=== PATIENT | male | born 1950 | race Caucasian/White ===

== ENCOUNTER 2024-05-23 03:05 | Inpatient (IN) | payer MEDICARE, OTHER ==
[~2024-05-23] VITALS: Ht 185.4 cm; Wt 94.8 kg
[2024-05-23 03:15] VITALS: O2SAT 98
[2024-05-23] MEDS: SODIUM CHLORIDE 0.9% 500 ML IV ONE ×2 (03:39→05:15)
[2024-05-23 03:48] LABS: BASOPHILS % 1.1 % (0.0-2.0); DIFFERENTIAL COMMENT 0; EOSINOPHILS % 1.4 % (0.0-5.0); HEMOGLOBIN. 7.9 g/dL (14.0-18.0); LYMPHOCYTES % 21.5 % (20.0-50.0); MEAN CORPUSCULAR HEMOGLOBIN 32.3 pg (28.0-32.0); MEAN CORPUSCULAR HGB CONC 31.4 g/dL (31.0-37.0); MEAN CORPUSCULAR VOLUME 102.8 fL (80.0-94.0); MEAN PLATELET VOLUME 8.5 fl (7.4-10.4); MONOCYTES % 8.1 % (2.0-8.0); NEUTROPHILS % 67.9 % (40.0-76.0); PLATELET 302 x1000/uL (130-400); RED BLOOD CELL COUNT 2.43 mill/uL (4.7-6.1); RED CELL DISTRIBUTION WIDTH 15.6 % (11.6-14.6); WHITE BLOOD COUNT 8.6 x1000/uL (4.5-11.0)
[2024-05-23 04:02] LABS: CHLORIDE 115 mEq/L (98-107); POTASSIUM 4.6 mEq/L (3.5-5.1); SODIUM 141 mEq/L (136-145)
[2024-05-23 04:03] LABS: CALCIUM 7.6 mg/dL (8.7-10.4); CARBON DIOXIDE 18 mEq/L (21-32)
[2024-05-23 04:08] LABS: CREATININE 1.6 mg/dL (0.6-1.3); GLUCOSE 161 mg/dL (70-105); UREA NITROGEN BLOOD 12 mg/dL (9-23)
[2024-05-23 04:09] LABS: TROPONIN I HIGH SENSITIVITY 5 ng/L (3.0-53)
[2024-05-23 04:25] LABS: ETHANOL BLOOD < 10 mg/dL (<10)
[2024-05-23 04:29] LABS: INR 1.2; PARTIAL THROMBOPLASTIN TIME 26.8 sec (23.4-31.0); PROTHROMBIN TIME 13.1 sec (9.6-11.0)
[2024-05-23 04:41] LABS: ALANINE AMINOTRANSFERASE 24 IU/L (10-49); ALBUMIN 2.8 g/dL (3.2-4.8); ASPARTATE AMINOTRANSFERASE 21 IU/L (<34); BILIRUBIN DIRECT 0.4 mg/dL (<=3.0); BILIRUBIN TOTAL 0.6 mg/dL (0.1-1.0)
[2024-05-23] MEDS: PANTOPRAZOLE SODIUM 40 MG/VIAL IV NR (05:28)
[2024-05-23] MEDS ORDERED: ONDANSETRON HCL 4MG/2ML INJ IV PRN (09:00)
[2024-05-23] MEDS ORDERED: IPRATROPIUM/ALBUTEROL 0.5-3(2.5)MG/3ML NEB HHN PRN (09:00)
[2024-05-23 10:58] LABS: IRON 55 ug/dL (65-175)
[2024-05-23 11:01] LABS: PHOSPHORUS 4.5 mg/dL (2.5-4.9); TOTAL IRON BINDING CAPACITY 250 ug/dl (250-425)
[2024-05-23 12:00] VITALS: BP 110/71; PULSE 86; RESP 20; TEMP 36.33624; TEMP 36.3624; O2SAT 98
[2024-05-23 13:04] LABS: *AMPHETAMINES SCREEN URINE NEGATIVE (NEGATIVE); *BARBITURATES SCREEN URINE NEGATIVE (NEGATIVE); *BENZODIAZEPINES SCREEN URINE NEGATIVE (NEGATIVE); *COCAINE SCREEN URINE NEGATIVE (NEGATIVE); METHADONE URINE SCREEN NEGATIVE (NEGATIVE); OPIATES URINE SCREEN NEGATIVE (NEGATIVE)
[2024-05-23 13:05] LABS: ECSTASY MDMA SCREEN URINE NEGATIVE (NEGATIVE); PHENCYCLIDINE URINE SCREEN NEGATIVE (NEGATIVE)
[2024-05-23 13:22] LABS: FOLIC ACID (FOLATE) SERUM > 20.00 ng/mL (>5.38)
[2024-05-23 13:23] LABS: FERRITIN 278 ng/mL (22-322); VITAMIN B12 SERUM 563 pg/mL (211-911)
[2024-05-23 16:00] VITALS: BP 91/52; PULSE 91; RESP 18; TEMP 36.55848; O2SAT 98
[2024-05-23 16:05] LABS: CANNABINOID URINE SCREEN NEGATIVE (NEGATIVE)
[2024-05-23 20:00] VITALS: BP 94/65; PULSE 71; RESP 18; TEMP 36.83628; O2SAT 100
[2024-05-23] MEDS: HYDROXYZINE 25MG TABLET PO PRN (22:10)
[2024-05-23] MEDS: PANTOPRAZOLE SODIUM 40 MG/VIAL IV SCH (22:14)
[2024-05-24] VITALS: BP 105/61; PULSE 79; RESP 18; TEMP 36.33624; O2SAT 96
[2024-05-24 04:00] VITALS: BP 101/74; PULSE 84; RESP 18; TEMP 36.28068; O2SAT 99
[2024-05-24 06:52] LABS: CARBON DIOXIDE 21 mEq/L (21-32); CHLORIDE 113 mEq/L (98-107); POTASSIUM 4.1 mEq/L (3.5-5.1); SODIUM 141 mEq/L (136-145)
[2024-05-24 06:53] LABS: CALCIUM 8.1 mg/dL (8.7-10.4)
[2024-05-24 06:55] LABS: THYROID STIMULATING HORMONE 3.27 uIU/mL (0.55-4.78)
[2024-05-24 06:58] LABS: CREATININE 1.5 mg/dL (0.6-1.3); GLUCOSE 86 mg/dL (70-105); TRIGLYCERIDE 95 mg/dL (0-150); UREA NITROGEN BLOOD 10 mg/dL (9-23)
[2024-05-24 06:59] LABS: LDL CHOLESTEROL 28 mg/dL (5-100)
[2024-05-24 07:00] LABS: CHOLESTEROL 65 mg/dL (<200); HDL CHOLESTEROL < 20 mg/dL (>55)
[2024-05-24 07:04] LABS: BASOPHILS % 1.4 % (0.0-2.0); EOSINOPHILS % 2.2 % (0.0-5.0); HEMATOCRIT. 21.7 % (42.0-52.0); HEMOGLOBIN. 7.1 g/dL (14.0-18.0); LYMPHOCYTES % 25.1 % (20.0-50.0); MEAN CORPUSCULAR HGB CONC 32.8 g/dL (31.0-37.0); MEAN CORPUSCULAR VOLUME 97.7 fL (80.0-94.0); MEAN PLATELET VOLUME 8.8 fl (7.4-10.4); MONOCYTES % 7.6 % (2.0-8.0); NEUTROPHILS % 63.7 % (40.0-76.0); PLATELET 206 x1000/uL (130-400); RED BLOOD CELL COUNT 2.22 mill/uL (4.7-6.1); RED CELL DISTRIBUTION WIDTH 16.7 % (11.6-14.6); WHITE BLOOD COUNT 4.8 x1000/uL (4.5-11.0)
[2024-05-24 08:00] VITALS: BP 80/50; PULSE 84; RESP 20; TEMP 35.61396; O2SAT 92
[2024-05-24] MEDS: LACTATED RINGERS 1,000 ML IV SCH (08:00)
[2024-05-24 12:00] VITALS: BP 290/62; PULSE 82; RESP 20; TEMP 36.55848; O2SAT 97
[2024-05-24] MEDS: MAGNESIUM 2 G PREMIX 50 ML IV NR (13:25)
[2024-05-24 15:26] LABS: HEMOGLOBIN 7.6 g/dL (14.0-18.0)
[2024-05-24] MEDS ORDERED: POLYVINYL ALCOHOL OPHTH DROPS 15ML BOTHEYE PRN (15:30)
[2024-05-24 16:00] VITALS: BP 107/71; PULSE 82; RESP 18; TEMP 36.9474; O2SAT 99
[2024-05-24] MEDS: FERROUS SULFATE 325MG TABLET PO SCH (17:41)
[2024-05-24] MEDS: [UNRECOGNIZED DRUG - OTHER] PO SCH (17:41)
[2024-05-24] MEDS: BISACODYL 10MG SUPP PR NR (17:45)
[2024-05-24 20:00] VITALS: BP 113/66; PULSE 80; RESP 18; TEMP 36.22512; O2SAT 97
[2024-05-24] MEDS: SENNOSIDES/DOCUSATE SOD 8.6/50MG TABLET PO SCH (23:02)
[2024-05-24] MEDS: ATORVASTATIN CALCIUM 40MG TABLET PO SCH (23:02)
[2024-05-25] VITALS (7 sets, daily range): BP systolic 81–128; BP diastolic 47–85; PULSE 60–87; RESP 18; TEMP 35.8362–37.00296; O2SAT 87–98
[2024-05-25] MEDS: LACTATED RINGERS 1,000 ML IV SCH (02:39)
[2024-05-25] MEDS: CYANOCOBALAMIN 1000MCG TABLET PO SCH (06:57)
[2024-05-25] MEDS: LEVOTHYROXINE SODIUM 112MCG TABLET PO SCH (06:57)
[2024-05-25 09:38] LABS: BASOPHILS % 1.2 % (0.0-2.0); EOSINOPHILS % 2.6 % (0.0-5.0); HEMATOCRIT. 22.7 % (42.0-52.0); HEMOGLOBIN. 7.5 g/dL (14.0-18.0); LYMPHOCYTES % 21.4 % (20.0-50.0); MEAN CORPUSCULAR HEMOGLOBIN 32.3 pg (28.0-32.0); MEAN CORPUSCULAR HGB CONC 32.9 g/dL (31.0-37.0); MEAN CORPUSCULAR VOLUME 98.2 fL (80.0-94.0); MEAN PLATELET VOLUME 8.6 fl (7.4-10.4); MONOCYTES % 5.8 % (2.0-8.0); PLATELET 222 x1000/uL (130-400); RED BLOOD CELL COUNT 2.31 mill/uL (4.7-6.1); RED CELL DISTRIBUTION WIDTH 16.4 % (11.6-14.6); WHITE BLOOD COUNT 5.1 x1000/uL (4.5-11.0)
[2024-05-25 09:55] LABS: POTASSIUM 4.3 mEq/L (3.5-5.1)
[2024-05-25] MEDS: SPIRONOLACTONE 25MG TABLET PO SCH (09:55)
[2024-05-25] MEDS: ASCORBIC ACID 500 MG TABLET PO SCH (09:55)
[2024-05-25] MEDS: CHOLECALCIFEROL (D3) 1000 UNIT TABLET PO SCH (09:55)
[2024-05-25] MEDS: POLYETHYLENE GLYCOL 3350 (17GM) 1 DOSE PACK PO SCH (09:55)
[2024-05-25 09:56] LABS: CALCIUM 8.1 mg/dL (8.7-10.4)
[2024-05-25 09:58] LABS: CREATININE 1.5 mg/dL (0.6-1.3)
[2024-05-25] MEDS: LACTULOSE 20G/30ML UDC PO NR (13:23)
[2024-05-26] VITALS (13 sets, daily range): BP systolic 80–111; BP diastolic 47–94; PULSE 65–81; RESP 15–24; TEMP 35.8362–36.72516; O2SAT 95–98
[2024-05-26 06:53] LABS: BASOPHILS % 0.9 % (0.0-2.0); EOSINOPHILS % 2.8 % (0.0-5.0); HEMATOCRIT. 22.7 % (42.0-52.0); HEMOGLOBIN. 7.4 g/dL (14.0-18.0); LYMPHOCYTES % 24.3 % (20.0-50.0); MEAN CORPUSCULAR HEMOGLOBIN 31.5 pg (28.0-32.0); MEAN CORPUSCULAR HGB CONC 32.4 g/dL (31.0-37.0); MEAN CORPUSCULAR VOLUME 97.2 fL (80.0-94.0); MEAN PLATELET VOLUME 8.7 fl (7.4-10.4); MONOCYTES % 7.2 % (2.0-8.0); NEUTROPHILS % 64.8 % (40.0-76.0); PLATELET 201 x1000/uL (130-400); RED BLOOD CELL COUNT 2.34 mill/uL (4.7-6.1); RED CELL DISTRIBUTION WIDTH 16.4 % (11.6-14.6); WHITE BLOOD COUNT 4.9 x1000/uL (4.5-11.0)
[2024-05-26 07:21] LABS: CALCIUM 8.1 mg/dL (8.7-10.4); CARBON DIOXIDE 23 mEq/L (21-32); CHLORIDE 113 mEq/L (98-107); POTASSIUM 4.3 mEq/L (3.5-5.1); SODIUM 142 mEq/L (136-145)
[2024-05-26 07:27] LABS: CREATININE 1.5 mg/dL (0.6-1.3); GLUCOSE 80 mg/dL (70-105); UREA NITROGEN BLOOD 12 mg/dL (9-23)
[2024-05-26] MEDS: VITAMIN A PO SCH (09:00)
[2024-05-26 11:54] LABS: PHOSPHORUS 3.4 mg/dL (2.5-4.9)
[2024-05-26] MEDS ORDERED: FERR-63 PO (12:04)
== END 2024-05-26 18:50 | disposition home or self-care (01) | DRG 377 ==
LOC: ER 03:05 → 5WST 04:56 → EDBEDREQ 05:01 → EDBEDREQTM 05:01 → EDBEDREQSVC 11:15 → 5EST 05-25 22:39
PROVIDERS: ADMIT Hospitalist; ATTEND Hospitalist
PROC: 30233N1 Transfusion of Nonautologous Red Blood Cells into Peripheral Vein, Percutaneous Approach (ICD-10-PCS; principal; 2024-05-23)
DX: K57.31 Diverticulosis of large intestine without perforation or abscess with bleeding (principal); R57.1 Hypovolemic shock; E87.20 Acidosis, unspecified; I48.20 Chronic atrial fibrillation, unspecified; I31.39 Other pericardial effusion (noninflammatory); N17.9 Acute kidney failure, unspecified; K56.41 Fecal impaction; K76.0 Fatty (change of) liver, not elsewhere classified; J44.9 Chronic obstructive pulmonary disease, unspecified; D53.9 Nutritional anemia, unspecified; I50.9 Heart failure, unspecified; H35.30 Unspecified macular degeneration; H54.8 Legal blindness, as defined in USA; I11.0 Hypertensive heart disease with heart failure; E83.42 Hypomagnesemia; E03.9 Hypothyroidism, unspecified; F17.210 Nicotine dependence, cigarettes, uncomplicated; E78.5 Hyperlipidemia, unspecified; E86.0 Dehydration; G47.00 Insomnia, unspecified; K80.50 Calculus of bile duct without cholangitis or cholecystitis without obstruction; Z79.01 Long term (current) use of anticoagulants; Z79.82 Long term (current) use of aspirin; Z79.84 Long term (current) use of oral hypoglycemic drugs; Z90.49 Acquired absence of other specified parts of digestive tract; Z95.818 Presence of other cardiac implants and grafts; Z98.84 Bariatric surgery status; Z79.899 Other long term (current) drug therapy
CPT/HCPCS: 36415; 71045; 74177; 80048; 80061; 80076; 80305; 80320; 82607; 82728; 82746; 83036; 83540; 83550; 83605; 83735; 83880; 84100; 84443; 84484; 85014; 85018; 85025; 85044; 86850; 86900; 86920; 93005; 93306; 97166; 99285; A4606; J2470; J3475; J7120; P9016; G0480